=== PATIENT | female | born 1990 | race Caucasian/White ===

== ENCOUNTER 2019-01-29 17:35 | Emergency (ER) | payer OTHER ==
--- NOTE | 2019-01-29 18:15 | ED PDOC ---
Arrival/HPI - General Chief Complaint: Female Genitourinary Time Seen by Provider: 01/29/19 17:59 Historian: Patient - History of Present Illness Narrative History of Present Illness (Text): 01/29/19 18:29 28 y/o A1 10 week by LMP with no significant PMH presents to the ED c/o vaginal bleeding since this morning. Bleeding is a light spotting without clots that began after intercourse with her this morning. Last time she went to the bathroom, she noticed the bleeding had resolved. Associated crampy lower abdominal pain. LMP 11/22/18. Denies fever, chills, back pain, urinary symptoms, SOB, chest pain, cough, congestion, syncope, dizziness, headache, or any other associated symptoms. Past Medical History - Provider Review Nursing Documentation Reviewed: Yes Family/Social History - Physician Review Nursing Documentation Reviewed: Yes Family/Social History: No Known Family HX Allergies/Home Meds Allergies/Adverse Reactions: Allergies No Known Allergies Allergy (Verified 01/29/19 18:17) Review of Systems - Review of Systems Constitutional: Normal. absent: Fevers Eyes: Normal. absent: Vision Changes Respiratory: Normal. absent: SOB, Cough Cardiovascular: Normal. absent: Chest Pain, Palpitations, Syncope Gastrointestinal: Abdominal Pain. absent: Nausea, Vomiting, Appetite Changes Genitourinary Female: Vaginal Bleeding. absent: Dysuria, Frequency, Vaginal Discharge Musculoskeletal: Normal. absent: Back Pain, Neck Pain Skin: Normal. absent: Rash Neurological: Normal. absent: Headache, Dizziness Physical Exam Vital Signs Reviewed: Yes Temperature: Afebrile Blood Pressure: Normal Pulse: Regular Respiratory Rate: Normal Appearance: Positive for: Well-Appearing, Non-Toxic, Comfortable Pain Distress: None Mental Status: Positive for: Alert and Oriented X 3 - Systems Exam Head: Present: Atraumatic, Normocephalic Pupils: Present: PERRL Extroacular Muscles: Present: EOMI Conjunctiva: Present: Normal Mouth: Present: Moist Mucous Membranes Neck: Present: Normal Range of Motion. No: Meningeal Signs Respiratory/Chest: Present: Clear to Auscultation, Good Air Exchange. No: Respiratory Distress, Accessory Muscle Use Cardiovascular: Present: Regular Rate and Rhythm, Normal S1, S2, Peripheal Pulses Present Abdomen: Present: Tenderness (mild suprapubic), Normal Bowel Sounds. No: Distention, Peritoneal Signs, Guarding Back: Present: Normal Inspection. No: CVA Tenderness Upper Extremity: Present: Normal Inspection, Normal ROM, NORMAL PULSES, Neurovascularly Intact, Capillary Refill < 2s. No: Cyanosis, Edema, Temperature Abnormalties Lower Extremity: Present: Normal Inspection, NORMAL PULSES, Normal ROM, Neurovascularly Intact, Capillary Refill < 2 s. No: Edema, Temperature Abno rmalties Neurological: Present: GCS=15, CN II-XII Intact, Speech Normal, Motor Func Grossly Intact, Normal Sensory Function, Gait Normal Skin: Present: Warm, Dry, Normal Color. No: Rashes Psychiatric: Present: Alert, Oriented x 3, Normal Insight, Normal Concentration, Normal Affect, Normal Mood Medical Decision Making ED Course and Treatment: 01/29/19 18:27 Initial Plan: * Labs * Type and Screen * UA * Transvaginal US * IVF Bloodwork reviewed, leukocytosis at 14.9 without left shift. Otherwise unremarkable. Urine negative for bacteria Bloodtype O+, no indication for rhogam. Ultrasound shows live IUP, cervix closed. Estimated age 8 weeks 5 days. Advised followup with OB or ED in 48 hours for repeat hcg. Provided with OBGYN referral to [facility]. Given her hcg value and copy of ultrasound report. Pt verbalized understanding and states she will followup in 48 hours for repeat testing as instructed. Diagnostic testing results and plan of care discussed with patient. Strict instructions given regarding prescription use, importance of followup, and signs/symptoms to return to ER including worsening abdominal pain, fever, vomiting, or any other new/worsening symptoms. Pt verbalized understanding of discussion. Patient is A&Ox3, ambulating with steady gait, with vital signs stable for discharge. - Lab Interpretations Lab Results: 01/29/19 18:45 01/29/19 18:45 Lab Results 01/29/19 21:24: Blood Type Confirm O POSITIVE 01/29/19 19:01: Urine Color Yellow, Urine Appearance Clear, Urine pH 6.5, Ur Specific [place] 1.020, Urine Protein Negative, Urine Glucose (UA) Negative, Urine Ketones Negative, Urine Blood Negative, Urine Nitrate Negative, Urine Gage irubin Negative, Urine Urobilinogen 0.2, Ur Leukocyte Esterase Negative, Urine HCG, Qual Positive 01/29/19 18:45: Blood Type O POSITIVE, Antibody Screen Negative, BBK History Checked No verified bt 01/29/19 18:45: Beta HCG, Quant 39510.00 H 01/29/19 18:45: Sodium 136, Potassium 3.8, Chloride 100, Carbon Dioxide 26, Anion Gap 13, BUN 9, Creatinine 0.5 L, Est GFR ( Amer) > 60, Est GFR (Non-Af Amer) > 60, Random Glucose 90, Calcium 9.2, Total Bilirubin 0.2, AST 30, ALT 24, Alkaline Phosphatase 79, Total Protein 8.0, Albumin 4.2, Globulin 3.9, Albumin/Globulin Ratio 1.1 01/29/19 18:45: PT 13.1 H, INR 1.18, APTT 34.5 01/29/19 18:45: WBC 14.9 H, RBC 4.82, Hgb 11.9 L, Hct 36.2, MCV 75.1 L, MCH 24.7 L, MCHC 32.9, RDW 15.1 H, Plt Count 401, MPV 8.8, Neut % (Auto) 68.0, Lymph % (Auto) 26.0, [place] % (Auto) 4.8, Eos % (Auto) 1.1 L, Baso % (Auto) 0.1, Lymph # (Auto) 3.9 H, [place] # (Auto) 0.7 H, Eos # (Auto) 0.2, Baso # (Auto) 0.02, Absolute Neuts (auto) 10.12 H I have reviewed the lab results: Yes Disposition/Present on Arrival - Present on Arrival Any Indicators Present on Arrival: No History of DVT/PE: No History of Uncontrolled Diabetes: No Urinary Catheter: No History of Decub. Ulcer: No - Disposition Have Diagnosis and Disposition been Completed?: Yes Diagnosis: Vaginal bleeding affecting early Disposition: HOME/ ROUTINE Disposition Time: 20:48 Patient Plan: Discharge Condition: STABLE Discharge Instructions (ExitCare): Bleeding With Additional Instructions: Strict bedrest and pelvic rest Increase fluids, no strenuous activity Continue vitamins Followup with OBGYN or ED in 48 hours for repeat bloodwork - your hcg today was 63393.00; your bloodtype is O+ Followup with primary doctor within 2 days Return to ER with any new/worsening symptoms [facility] - Follow up with primary Hand,Osbert, MD [Staff Provider] - Follow up with primary Forms: [employer] (Bengali), WORK NOTE
[2019-01-29 18:17] VITALS: BMI 35.6
[2019-01-29 18:18] VITALS: BP 119/73; PULSE 69; RESP 18; TEMP 98.8; O2SAT 99
[2019-01-29] MEDS ORDERED: Sodium Chloride 0.9% 1,000 ML IV STA (18:18)
[2019-01-29 19:11] LABS: BASO # 0.02 K/mm3 (0.0-2.0); BASO % 0.1 % (0.0-3.0); EOS # 0.2 (0.0-0.7); EOS % 1.1 % (1.5-5.0); HEMOGLOBIN 11.9 g/dL (12.0-16.0); LYMPH # 3.9 (1.2-3.4); MEAN CELL VOLUME 75.1 fl (80.0-105.0); MEAN CORPUSCULAR HEMOGLOBIN 24.7 pg (25.0-35.0); MEAN CORPUSCULAR HGB CONC 32.9 g/dl (31.0-37.0); MEAN PLATELET VOLUME 8.8 fl (7.0-11.0); MONO # 0.7 (0.1-0.6); MONO % 4.8 % (1.0-6.0); RBC 4.82 10^6/uL (3.5-6.1); RED CELL DISTRIBUTION WIDTH 15.1 % (11.5-14.5); WHITE BLOOD COUNT 14.9 10^3/uL (4.5-11.0)
[2019-01-29 19:12] LABS: PH,URINE 6.5 (4.7-8.0); URINE BILIRUBIN NEGATIVE (NEGATIVE); URINE BLOOD NEGATIVE (NEGATIVE); URINE GLUCOSE (UA) NEGATIVE (NEGATIVE); URINE LEUKOCYTE ESTERASE NEGATIVE Leu/uL (NEGATIVE); URINE PROTEIN NEGATIVE mg/dL (<30 mg/dL); URINE UROBILINOGEN 0.2 E.U./dL (<1 E.U./dL)
[2019-01-29 19:14] LABS: INR 1.18; PARTIAL THROMBOPLASTIN TIME 34.5 Seconds (26.9-38.3); PROTHROMBIN TIME 13.1 SECONDS (9.4-12.5)
[2019-01-29 19:14] LABS: URINE APPEARANCE CLEAR (CLEAR); URINE COLOR YELLOW (YELLOW)
[2019-01-29 19:15] LABS: HCG,QUALITATIVE URINE POSITIVE (NEGATIVE)
[2019-01-29 19:17] LABS: ALB/GLOB RATIO 1.1 (1.1-1.8); ALBUMIN 4.2 g/dL (3.0-4.8); ALT/SGPT 24 U/L (7-56); AST/SGOT 30 U/L (14-36); BLOOD UREA NITROGEN 9 mg/dL (7-21); CALCIUM 9.2 mg/dL (8.4-10.5); GFR NON-AFRICAN AMERICAN > 60
--- NOTE | 2019-01-30 08:44 | US ---
LMP: 11/22/2018 Prior examinations from the current : TECHNIQUE: Real-time 2D imaging, duplex and color Doppler. FINDINGS: Cardiac activity: Present Rate: 160BPM Measurements: [place] rump length: 2.47cm Gestational age based on CRL 9 weeks 1 day Gestational age based on gestational sac measurement 8 weeks 5 days +/-0 weeks 4 days Yolk sac not seen uterus: Unremarkable. 11.9 x 0.3 by 8.1 cm No Cervical abnormalities: Negative examination for cervical dilatation or effacement. Subchorionic hemorrhage: None ADNEXA: Right: Ovary 2.87 x 1.85 x 2.64 cm. Normal Doppler arterial waveform documented. Left: Ovary 2.19 x 0.91 by 1.80 cm. Normal Doppler arterial waveform documented Fluid in the cul-de-sac: None Impression: Single intrauterine gestation with normal cardiac activity. Menstrual age by ultrasound parameters is 8 weeks 5 days +/-0 weeks 4 days. No subchorionic hemorrhage seen. Concordant results (preliminary interpretation) provided by [employer].
== END 2019-01-29 21:36 | disposition home or self-care (01) ==
LOC: ED 17:35
DX: O46.91 Antepartum hemorrhage, unspecified, first trimester (principal); Z3A.08 8 weeks gestation of pregnancy
CPT/HCPCS: 76817; 80053; 81003; 81025; 84702; 84703; 85025; 85610; 85730; 86850; 86900; 96360; 99283; J7030